=== PATIENT | male | born 1980 | race Two or more races ===

== ENCOUNTER 2019-12-21 15:24 | Emergency (ER) | payer SELFPAY ==
[~2019-12-21] VITALS: Ht 165.1 cm; Wt 68.0 kg
--- NOTE | 2019-12-21 15:30 | NUR ---
patient came in to the er c/o laceration to R 3rd and 4th digit from ax 30min [employer]. On room air, breathing evenly and unlabored. connected to the monitor and pulse ox. kept comfortable, will continue to monitor accordingly.
[2019-12-21] MEDS ORDERED: HYDROMORPHONE 1 MG/1 ML DISP.SYRIN ONE (15:55)
[2019-12-21] MEDS ORDERED: ONDANSETRON HCL/PF 4 MG/2 ML VIAL ONE (15:55)
[2019-12-21] MEDS ORDERED: TDAP [DIPH/PERTUSSIS/TET] 0.5 ML VIAL IM ONE ×2 (15:55→16:00)
[2019-12-21] MEDS ORDERED: IV NS 0.9% 1,000 ML IV ONE (16:00)
[2019-12-21] MEDS ORDERED: CEFAZOLIN 1 GM in IV D5W 50 ML IV ONE (16:00)
[2019-12-21] MEDS ORDERED: ONDANSETRON HCL/PF - ER 4 MG/2 ML VIAL IV ONE (16:00)
[2019-12-21] MEDS ORDERED: HYDROMORPHONE INJ 0.5 MG/0.5 ML SYRINGE IV ONE (16:00)
[2019-12-21] MEDS ORDERED: LIDOCAINE 1% INJ 50 ML MDV IJ ONE ×2 (17:30→17:47)
[2019-12-21 19:13] VITALS: BP 145/81
--- NOTE | 2019-12-21 19:13 | NUR ---
Patient discharged to home in stable condition. Written and verbal after care instructions given. Patient verbalizes understanding of instruction.IV removed. Catheter intact and site benign. Pressure and 4x4 applied to site. No bleeding noted.
== END 2019-12-21 19:13 | disposition home or self-care (01) ==
LOC: ER 15:25
DX: S56.425A Laceration of extensor muscle, fascia and tendon of right ring finger at forearm level, initial encounter (principal); S56.427A Laceration of extensor muscle, fascia and tendon of right little finger at forearm level, initial encounter; W22.8XXA Striking against or struck by other objects, initial encounter; Y93.89 Activity, other specified; Y92.89 Other specified places as the place of occurrence of the external cause; Y99.8 Other external cause status
CPT/HCPCS: 12002; 73130; 90471; 90715; 96365; 96375; 99284; J0690; J1170; J2405; J3490; J7030; J7060